=== PATIENT | female | born 1975 | race Hispanic/Latino ===

== ENCOUNTER 2019-09-25 11:09 | Emergency (ER) | payer SELFPAY ==
[~2019-09-25] VITALS: Ht 149.9 cm; Wt 63.5 kg
--- NOTE | 2019-09-25 11:42 | NUR ---
network technical analyst phone used.
== END 2019-09-25 12:41 | disposition home or self-care (01) ==
LOC: ER 11:09
DX: J01.00 Acute maxillary sinusitis, unspecified (principal); R04.0 Epistaxis
CPT/HCPCS: 99283

== ENCOUNTER 2020-05-20 21:15 | Emergency (ER) | payer OTHER ==
[~2020-05-20] VITALS: Ht 149.9 cm; Wt 63.5 kg
[2020-05-20] MEDS ORDERED: BACITRACIN ZINC 0.9GM TP ONE (21:30)
[2020-05-20] MEDS ORDERED: TETANUS/DIPHTHERIA TOX ADULT 0.5 ML SYR IM ONE (21:30)
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
--- OUTSIDE RECORDS SUMMARY | 2020-05-20 21:34 | XMS REPORT | Continuity of Care Document ---
Author Author [facility] Organization [facility] Address [address] [place] [address] Phone Unavailable Care Team Providers Care Paper Bundler Name Role Phone NO, PCP PCP Unavailable Problems This patient has no known problems. Allergies, Adverse Reactions, Alerts This patient has no known allergies or adverse reactions. Medications This patient has no known medications. Procedures This patient has no known procedures. Encounters Start Date/Time End Date/Time [facility] Type [facility] En[facility] ID Source 2019-09-25 11:09:00 2019-09-25 12:41:00 Departed Emergency Room [facility] [id number] [facility] Results This patient has no known results.
== END 2020-05-20 22:00 | disposition home or self-care (01) ==
LOC: ER 21:29
DX: T23.222A Burn of second degree of single left finger (nail) except thumb, initial encounter (principal); T65.891A Toxic effect of other specified substances, accidental (unintentional), initial encounter
CPT/HCPCS: 90714

== ENCOUNTER 2020-10-18 22:43 | Emergency (ER) | payer SELFPAY ==
[~2020-10-18] VITALS: Ht 149.9 cm; Wt 68.0 kg
[2020-10-18] MEDS ORDERED: ACETAMINOPHEN 325 MG TAB ONE (23:05)
== END 2020-10-18 23:10 | disposition home or self-care (01) ==
LOC: ER 22:50
DX: R50.9 Fever, unspecified (principal); R05 Cough; M79.10 Myalgia, unspecified site
CPT/HCPCS: 99283

== ENCOUNTER 2022-07-05 09:42 | Emergency (ER) | payer SELFPAY ==
[~2022-07-05] VITALS: Ht 149.9 cm; Wt 77.1 kg
== END 2022-07-05 10:22 | disposition home or self-care (01) ==
LOC: ER 09:46
DX: N64.4 Mastodynia (principal); S20.02XA Contusion of left breast, initial encounter; W22.8XXA Striking against or struck by other objects, initial encounter; Y99.0 Civilian activity done for income or pay
CPT/HCPCS: 99282

== ENCOUNTER 2022-07-12 20:08 | Emergency (ER) | payer SELFPAY ==
[~2022-07-12] VITALS: Ht 149.9 cm; Wt 77.1 kg
[2022-07-12 22:10] VITALS: BP 118/91
== END 2022-07-12 22:11 | disposition home or self-care (01) ==
LOC: ER 20:18
DX: N64.4 Mastodynia (principal)
CPT/HCPCS: 71046; 93005; 99283

== ENCOUNTER 2023-02-24 07:12 | Emergency (ER) | payer SELFPAY ==
[~2023-02-24] VITALS: Ht 149.9 cm; Wt 77.1 kg
[2023-02-24] MEDS ORDERED: KETOROLAC TROMETHAMINE 30 MG/ML VIAL IV STA (07:31)
[2023-02-24] MEDS ORDERED: ONDANSETRON HCL INJ 2MG/ML 2ML 2 MG/ML VIAL IV STA (07:31)
[2023-02-24 07:41] LABS: BASOPHILS % 0.3 % (0.0-1.0); EOSINOPHILS # (AUTO) 0.1 (0.0-0.4); EOSINOPHILS % 1.7 % (0.0-6.0); HEMATOCRIT 38.8 % (34.2-44.1); HEMOGLOBIN 12.8 g/dL (12.0-16.0); LYMPHOCYTES # (AUTO) 2.6 (1.0-3.2); LYMPHOCYTES % 33.6 % (18.0-39.1); MEAN CORPUSCULAR HEMOGLOBIN 30.5 pg (28-32); MEAN CORPUSCULAR VOLUME 92.6 fL (81-99); MONOCYTES # (AUTO) 0.5 (0.2-0.8); MONOCYTES % 6.7 % (4.4-11.3); NEUTROPHILS # (AUTO) 4.4 (2.1-6.9); NEUTROPHILS % 57.4 % (38.7-80.0); PLATELET COUNT 381 x10e3/uL (140-360); RED BLOOD COUNT 4.19 x10e6/uL (3.6-5.1); RED CELL DISTRIBUTION WIDTH 12.6 % (11.7-14.4)
[2023-02-24] MEDS ORDERED: SODIUM CHLORIDE 0.9% 1000ML 1,000 ML IV ONE (07:45)
[2023-02-24 07:53] LABS: CLARITY,URINE CLOUDY (CLEAR); COLOR,URINE YELLOW (YELLOW)
[2023-02-24 07:54] LABS: KETONES,URINE NEGATIVE (NEGATIVE); LEUKOCYTE ESTERASE ,URINE SMALL (NEGATIVE); NITRITE,URINE POSITIVE (NEGATIVE); PROTEIN,URINE DIPSTICK 2+ (NEGATIVE); URINE UROBILINOGEN 0.2 mg/dL (0.2 - 1)
[2023-02-24 08:07] LABS: ALANINE AMINOTRANSFERASE 20 IU/L (0-55); ALBUMIN 3.5 g/dL (3.5-5.0); ALBUMIN/GLOBULIN RATIO 0.9 (0.8-2.0); ALKALINE PHOSPHATASE 76 IU/L (40-150); BLOOD UREA NITROGEN 11 mg/dL (7-26); BUN/CREATININE RATIO 16 (6-25); CARBON DIOXIDE 24 mmol/L (22-29); CHLORIDE 106 mmol/L (98-107); CREATININE, SERUM 0.69 mg/dL (0.57-1.11); GLUCOSE 109 mg/dL (74-118); LIPASE 46 U/L (8-78); SODIUM 140 mmol/L (136-145)
[2023-02-24 08:14] LABS: BACTERIA,URINE MODERATE /HPF; EPITHELIAL CELLS,URINE FEW /LPF; RBC,URINE >50 /HPF (0-5); WBC,URINE (MAN) 0-5 /HPF (0-5)
[2023-02-24] MEDS ORDERED: ONDANSETRON ODT4 MG PO (08:31)
[2023-02-24] MEDS ORDERED: CEPHALEXIN500 MG PO (08:31)
[2023-02-24 09:00] VITALS: BP 129/95; PULSE 81; RESP 16; O2SAT 100
== END 2023-02-24 09:08 | disposition home or self-care (01) ==
LOC: ER 07:20
DX: R10.33 Periumbilical pain (principal); N39.0 Urinary tract infection, site not specified; R11.2 Nausea with vomiting, unspecified; R19.7 Diarrhea, unspecified
CPT/HCPCS: 36415; 80053; 81001; 83690; 84702; 85025; 99283; J1885; J2405; J7030

== ENCOUNTER 2024-08-14 20:13 | Emergency (ER) | payer SELFPAY ==
[~2024-08-14] VITALS: Ht 144.8 cm; Wt 72.6 kg
[~2024-08-14 20:13] MED LIST: CEPHALEXIN500 MG PO; MUCINEX DM ER1 EAC1 PO; NAPROXEN250 MG PO; ONDANSETRON ODT4 MG PO
[2024-08-14 20:57] VITALS: PULSE 95; RESP 16; TEMP 98.8; O2SAT 100
[2024-08-14] MEDS ORDERED: OFLOXACIN5 ML RIGHT EAR (21:15)
[2024-08-14] MEDS ORDERED: AMOXICILLIN875 MG PO (21:15)
== END 2024-08-14 21:22 | disposition home or self-care (01) ==
LOC: ER 20:51
DX: H65.91 Unspecified nonsuppurative otitis media, right ear (principal); H72.91 Unspecified perforation of tympanic membrane, right ear
CPT/HCPCS: 99283

== ENCOUNTER 2024-08-19 17:52 | Emergency (ER) | payer SELFPAY ==
[~2024-08-19] VITALS: Ht 144.8 cm; Wt 72.6 kg
[~2024-08-19 17:52] MED LIST changes: +AMOXICILLIN875 MG PO; +OFLOXACIN5 ML RIGHT EAR
[2024-08-19 20:16] LABS: BASOPHILS % 0.4 % (0.0-1.0); EOSINOPHILS # (AUTO) 0.1 (0.0-0.4); EOSINOPHILS % 0.9 % (0.0-6.0); HEMATOCRIT 35.7 % (34.2-44.1); HEMOGLOBIN 11.6 g/dL (12.0-16.0); LYMPHOCYTES # (AUTO) 2.3 (1.0-3.2); LYMPHOCYTES % 28.6 % (18.0-39.1); MEAN CORPUSCULAR HEMOGLOBIN 30.9 pg (28-32); MEAN CORPUSCULAR HGB CONC 32.5 g/dL (31-35); MEAN CORPUSCULAR VOLUME 94.9 fL (81-99); MONOCYTES # (AUTO) 0.6 (0.2-0.8); MONOCYTES % 7.5 % (4.4-11.3); NEUTROPHILS % 62.2 % (38.7-80.0); PLATELET COUNT 479 x10e3/uL (140-360); RED BLOOD COUNT 3.76 x10e6/uL (3.6-5.1); RED CELL DISTRIBUTION WIDTH 12.3 % (11.7-14.4); WHITE BLOOD COUNT 8.04 x10e3/uL (4.8-10.8)
[2024-08-19 21:42] LABS: ALBUMIN 3.5 g/dL (3.5-5.0); ALBUMIN/GLOBULIN RATIO 0.9 (0.8-2.0); ANION GAP 15.7 mmol/L (8-16); BILIRUBIN,TOTAL 0.4 mg/dL (0.2-1.2); CALCIUM 9.4 mg/dL (8.4-10.2); CREATININE, SERUM 0.67 mg/dL (0.57-1.11); POTASSIUM 3.7 mmol/L (3.5-5.1); TOTAL PROTEIN 7.5 g/dL (6.5-8.1)
[2024-08-19 21:48] LABS: TROPONIN I 0.002 ng/mL (0-0.300)
[2024-08-19 22:23] VITALS: PULSE 78; RESP 16; TEMP 98.4; O2SAT 100
[2024-08-19] MEDS ORDERED: ULTRAM 50MG50 MG PO (22:24)
== END 2024-08-19 22:28 | disposition home or self-care (01) ==
LOC: ER 18:10
DX: M25.441 Effusion, right hand (principal); M25.462 Effusion, left knee; M25.461 Effusion, right knee; R60.9 Edema, unspecified
CPT/HCPCS: 36415; 71045; 80053; 82550; 83690; 83880; 84484; 85025; 93005; 99284